=== PATIENT | male | born 1990 | race African-American/Black ===

== ENCOUNTER 2023-08-19 17:50 | Emergency (ER) | payer OTHER ==
[~2023-08-19] VITALS: Ht 177.8 cm; Wt 78.0 kg
[2023-08-19 20:43] VITALS: BP 126/78
[2023-08-19 20:48] VITALS: BP 125/76
== END 2023-08-19 20:51 | disposition home or self-care (01) | DRG 563 ==
LOC: ED 17:50
DX: S46.912A Strain of unspecified muscle, fascia and tendon at shoulder and upper arm level, left arm, initial encounter (principal); V49.40XA Driver injured in collision with unspecified motor vehicles in traffic accident, initial encounter